=== PATIENT | male | born 1975 | race Hispanic/Latino ===

== ENCOUNTER 2018-01-08 13:26 | Emergency (ER) | payer MEDICARE | END 2018-01-08 14:37 | disposition home or self-care (01) | LOC: EDH 13:26 | DX: S40.011A Contusion of right shoulder, initial encounter (principal); F43.10 Post-traumatic stress disorder, unspecified; Z72.0 Tobacco use; X58.XXXA Exposure to other specified factors, initial encounter; Y93.89 Activity, other specified; Y92.89 Other specified places as the place of occurrence of the external cause; Y99.8 Other external cause status | CPT/HCPCS: 73030 ==

== ENCOUNTER 2020-01-11 18:35 | Emergency (ER) | payer MEDICARE, OTHER ==
[2020-01-11] MEDS ORDERED: ORPHENADRINE CITRATE 30 MG/ML ML ONE (19:13)
[2020-01-11] MEDS ORDERED: KETOROLAC TROMETHAMINE 30MG/ML ONE (19:14)
== END 2020-01-11 20:48 | disposition home or self-care (01) ==
LOC: EDH 18:35
DX: S39.012A Strain of muscle, fascia and tendon of lower back, initial encounter (principal); S29.012A Strain of muscle and tendon of back wall of thorax, initial encounter; S16.1XXA Strain of muscle, fascia and tendon at neck level, initial encounter; S63.501A Unspecified sprain of right wrist, initial encounter; S63.698A Other sprain of other finger, initial encounter; T22.119A Burn of first degree of unspecified forearm, initial encounter; F41.9 Anxiety disorder, unspecified; Z72.0 Tobacco use; V49.49XA Driver injured in collision with other motor vehicles in traffic accident, initial encounter; Y93.89 Activity, other specified; Y92.488 Other paved roadways as the place of occurrence of the external cause; Y99.8 Other external cause status
CPT/HCPCS: 71101; 72100; 72125; 73110; 73140; 93005; 96372 ×2; 99284; J1885; J2360

== ENCOUNTER 2020-07-26 00:04 | Emergency (ER) | payer OTHER, MEDICARE | END 2020-07-26 01:27 | LOC: EDH 00:04 | DX: F10.10 Alcohol abuse, uncomplicated (principal); F41.9 Anxiety disorder, unspecified | CPT/HCPCS: 96374 ==